=== PATIENT | female | born 1965 ===

== ENCOUNTER 2017-12-14 09:29 | Day surgery (SDC) | payer OTHER ==
[2017-05-22 12:04] VITALS: BMI 29.9
[2017-12-14] MEDS ORDERED: Lactated Ringer's 500 ML IV ONE (10:08)
[2017-12-14] MEDS ORDERED: Propofol 10 mg/ml Inj (20 ML) ONE (10:43)
[2017-12-14 11:27] VITALS: TEMP 98
[2017-12-14 11:41] VITALS: BP 121/69; PULSE 69; RESP 21; O2SAT 97
== END 2017-12-14 11:42 | disposition home or self-care (01) ==
LOC: H.ENDO 09:29
PROVIDERS: ATTEND Internal Medicine Gastroenterology
DX: Z85.038 Personal history of other malignant neoplasm of large intestine (principal); K62.89 Other specified diseases of anus and rectum; K64.0 First degree hemorrhoids
CPT/HCPCS: 45380; 88305; J2001; J2704; J7120